=== PATIENT | male | born 1960 | race Caucasian/White ===

== ENCOUNTER → 2017-11-08 09:16 | Outpatient (CLI) | payer OTHER, SELFPAY ==
--- NOTE | 2017-11-08 | DI.RAD.S_ITS ---
PROCEDURE: XR SHOULDER LT MIN 2V INDICATIONS: 57 year-old male with bilateral shoulder pain. TECHNIQUE: 3 views of the shoulder were acquired. COMPARISON: None. FINDINGS: Bones: No fractures or dislocations. There is mild acromioclavicular joint degeneration. No suspicious bony lesions. Visualized ribs appear intact. Cervical spine anterior fixation hardware is incompletely visualized. Soft tissues: No suspicious soft tissue calcifications. IMPRESSION: Mild left acromioclavicular joint degeneration. Dictated by: Salvador Viera M.D. on 11/08/2017 at 10:23 Approved by: Salvador Viera M.D. on 11/08/2017 at 10:24
--- NOTE | 2017-11-08 | DI.RAD.S_ITS ---
PROCEDURE: XR SHOULDER RT MIN 2V INDICATIONS: 57 year-old male with right shoulder pain. TECHNIQUE: 3 views of the shoulder were acquired. COMPARISON: None. FINDINGS: Bones: No fractures or dislocations. There is mild acromioclavicular joint degeneration. No suspicious bony lesions. Visualized ribs appear intact. Soft tissues: Cervical spine anterior fixation hardware is incompletely visualized. No suspicious soft tissue calcifications. IMPRESSION: Mild right acromioclavicular joint degeneration. Dictated by: Salvador Viera M.D. on 11/08/2017 at 10:22 Approved by: Salvador Viera M.D. on 11/08/2017 at 10:22
--- NOTE | 2017-11-08 09:20 | DI.RAD.S_ITS ---
PROCEDURE: XR WRIST RT MIN 3V INDICATIONS: 57 year-old male with bilateral hand and wrist pain. TECHNIQUE: 4 views of the wrist were acquired. COMPARISON: None. FINDINGS: Bones: No fractures or dislocations. No joint degeneration or bony erosions. No suspicious bony lesions. Scaphoid view: Scaphoid appears intact. Soft tissues: No suspicious soft tissue calcifications. IMPRESSION: No radiographic explanation for right wrist pain. Dictated by: Salvador Viera M.D. on 11/08/2017 at 10:32 Approved by: Salvador Viera M.D. on 11/08/2017 at 10:33
--- NOTE | 2017-11-08 09:20 | DI.RAD.S_ITS ---
PROCEDURE: XR WRIST LT MIN 3V INDICATIONS: 57 year-old male with nontraumatic left hand and wrist pain. TECHNIQUE: 4 views of the wrist were acquired. COMPARISON: [facility], [facility], XR HAND LT MIN 3V, 11/08/2017, 9:28. FINDINGS: Bones: No fractures or dislocations. No joint degeneration or bony erosions. Fourth metacarpal shaft and neck enchondroma is again noted. Scaphoid view: Scaphoid appears intact. Soft tissues: No suspicious soft tissue calcifications. IMPRESSION: No radiographic explanation for nontraumatic left wrist pain. Dictated by: Salvador Viera M.D. on 11/08/2017 at 10:37 Approved by: Salvador Viera M.D. on 11/08/2017 at 10:37
--- NOTE | 2017-11-08 09:21 | DI.RAD.S_ITS ---
PROCEDURE: XR HAND LT MIN 3V INDICATIONS: 57-year-old male with nontraumatic hand and wrist pain. TECHNIQUE: 3 views of the hand(s) acquired. COMPARISON: [facility] , BONE SURVEY ADULT METS, 07/17/2015, 11:06. [facility] , HAND 3V LEFT, 05/08/2015, 16:16. FINDINGS: Bones: No fractures or dislocations. Carpal bones are normally aligned. 2.1 x 1.1 cm central intramedullary lucent lesion in the fourth metacarpal shaft and neck is unchanged in overall size, with internal cartilaginous matrix again noted. Soft tissues: No suspicious soft tissue calcifications. IMPRESSION: No significant interval change in size and appearance of lucent lesion involving the fourth metacarpal shaft and neck, with morphology and temporal stability consistent with benign enchondroma. Dictated by: Salvador Viera M.D. on 11/08/2017 at 10:33 Approved by: Salvador Viera M.D. on 11/08/2017 at 10:36
--- NOTE | 2017-11-08 09:21 | DI.RAD.S_ITS ---
PROCEDURE: XR HAND RT MIN 3V INDICATIONS: 57-year-old male with nontraumatic right hand and wrist pain. TECHNIQUE: 3 views of the hand(s) acquired. COMPARISON: None. FINDINGS: Bones: No fractures or dislocations. No joint degeneration. No bony erosions or joint narrowing. Carpal bones are normally aligned. No suspicious bony lesions. Soft tissues: No suspicious soft tissue calcifications. IMPRESSION: No radiographic explanation for right hand pain. Dictated by: Salvador Viera M.D. on 11/08/2017 at 10:24 Approved by: Salvador Viera M.D. on 11/08/2017 at 10:25
== END ==
PROVIDERS: Family Provider Internal Medicine; PCP Internal Medicine; Visit Provider Internal Medicine
DX: M35.3 Polymyalgia rheumatica (principal); M19.012 Primary osteoarthritis, left shoulder; M19.011 Primary osteoarthritis, right shoulder; M25.541 Pain in joints of right hand; M25.531 Pain in right wrist; D16.12 Benign neoplasm of short bones of left upper limb; M25.532 Pain in left wrist
CPT/HCPCS: 73030; 73110; 73130

== ENCOUNTER → 2017-11-22 11:04 | Outpatient (CLI) | payer OTHER, SELFPAY ==
--- NOTE | 2017-11-22 | DI.RAD.S_ITS ---
PROCEDURE: XR ELBOW LT MIN 3V INDICATIONS: pain in arm TECHNIQUE: 3 views of the elbow were acquired. COMPARISON: None. FINDINGS: Bones: Partially visualized orthopedic plate and fixation screws in the proximal radial shaft. No acute fractures or dislocations. There is appearance of a chronic avulsion over the lateral margin of the capitellum, underlying bony irregularity and sclerosis. Slight deformity of the radial head laterally. No suspicious bony lesions. Soft tissues: No elbow joint effusion. No suspicious soft tissue calcifications. IMPRESSION: 1. No joint effusion or acute bony abnormality. 2. Chronic fracture deformities and postoperative changes. Dictated by: Biju James M.D. on 11/22/2017 at 11:46 Approved by: Biju James M.D. on 11/22/2017 at 11:49
--- NOTE | 2017-11-22 | DI.RAD.S_ITS ---
PROCEDURE: XR ELBOW RT MIN 3V INDICATIONS: pain in arm TECHNIQUE: 3 views of the elbow were acquired. COMPARISON: None. FINDINGS: Bones: No fractures or dislocations. No suspicious bony lesions. Small subcortical cystic changes are present in the lateral margin of the capitellum Soft tissues: No elbow joint effusion. No suspicious soft tissue calcifications. IMPRESSION: 1. Mild subcortical cystic change is capitellum. Possible overlying bursitis. No joint effusion. Dictated by: Biju James M.D. on 11/22/2017 at 11:41 Approved by: Biju James M.D. on 11/22/2017 at 11:43
== END ==
PROVIDERS: Family Provider Internal Medicine; PCP Internal Medicine; Visit Provider Internal Medicine
DX: M25.522 Pain in left elbow (principal); M25.521 Pain in right elbow
CPT/HCPCS: 73080

== ENCOUNTER → 2017-12-24 09:54 | Outpatient (CLI) | payer OTHER, SELFPAY | PROVIDERS: Family Provider Internal Medicine; PCP Internal Medicine; Visit Provider Internal Medicine Rheumatology | DX: M81.0 Age-related osteoporosis without current pathological fracture (principal) | CPT/HCPCS: 77080 ==

== ENCOUNTER → 2018-01-12 12:20 | Outpatient (CLI) | payer OTHER, SELFPAY ==
[2018-01-12 14:34] LABS: Thyroid Stimulating Hormone 0.88 uIU/mL (0.47-4.68)
== END ==
PROVIDERS: Family Provider Internal Medicine; PCP Internal Medicine; Visit Provider Internal Medicine Rheumatology
DX: M85.80 Other specified disorders of bone density and structure, unspecified site (principal)
CPT/HCPCS: 36415; 84443

== ENCOUNTER → 2018-01-18 10:59 | Outpatient (CLI) | payer OTHER, SELFPAY ==
--- NOTE | 2018-01-18 | DI.NM.S_ITS ---
PROCEDURE: [place] BONE SCAN WHOLE BODY RADIOPHARMACEUTICAL: 20.1 mCi Tc-99m MDP IV. INDICATIONS: UNSPECIFIED OSTEOARTHRITIS BILATERAL SHOULDER PAIN TECHNIQUE: Delayed whole-body scintigrams were obtained approximately 3-4 hours after intravenous injection of radiotracer. Anterior and posterior views were acquired from vertex to feet. Additional left and right oblique views of the pelvis were obtained. COMPARISON: [facility], CT, ABDOMEN/PELVIS WITH CONTRAST, 07/17/2015, 12:10. [place], [place], BONE SCAN WHOLE BODY, 06/04/2015, 14:17. [facility], , BONE SURVEY ADULT METS, 07/17/2015, 11:06. FINDINGS: No abnormal uptake in the calvarium or facial bones. Fusion of the lower cervical spine shows no abnormal uptake. Uptake in the right sixth posterior rib secondary to fracture on prior exam has healed with no residual. Degenerative uptake in the shoulders and sternoclavicular joints, elbows and wrists appear unchanged. The forearms are not completely included in the imaging. The left forearm, probable radius, shows heterogeneous uptake in the proximal and mid shaft similar to that on prior exam. Focal uptake in the left fourth metacarpal is unchanged. No abnormal uptake is evident in the thoracic and lumbar spine. The pelvis again shows photopenia secondary to right hip prosthesis with mild postsurgical uptake surrounding the femoral shaft and acetabulum. There is also mild uptake in the subtrochanteric region of the proximal left femur, both medially and laterally. Previous CT imaging shows an irregular sclerotic lesion at the base of the greater trochanter laterally and a 5 mm sclerotic focus in the anterior upper shaft. The bony pelvis shows no additional abnormality. The lower extremities distally show marked uptake in the left ankle, lateral midfoot and first metatarsal phalangeal joint. Kidneys are both functional. There is mild caliectasis in the right upper and lower pole calyces, unchanged. IMPRESSION: 1. Abnormal tracer uptake consistent with degenerative joint disease is evident in the upper and lower extremities as described. Uptake in the left foot and ankle is significantly increased compared to prior study. 2. Apparent postoperative uptake is evident in the right hip post arthroplasty. 3. There are areas of uptake that are of concern for possible non-arthritic bone lesions, notably in the left forearm, left hand and left proximal femur. All of these however appear unchanged from the 2015 exam. Dictated by: Biju James M.D. on 01/18/2018 at 15:41 Approved by: Biju James M.D. on 01/18/2018 at 16:05
--- NOTE | 2018-01-18 11:03 | DI.MRI.S_ITS ---
PROCEDURE: MR SHOULDER LT WO CON INDICATIONS: UNSPECIFIED OSTEOARTHRITIS BILATERAL SHOULDER PAIN TECHNIQUE: Noncontrast oblique coronal T2 fast spin echo with fat saturation, oblique sagittal T1 spin echo and T2 fast spin echo with fat saturation, axial T1 spin echo and T2 fast spin echo with fat saturation through the shoulder. COMPARISON: [facility], CR, XR SHOULDER LT MIN 2V, 11/08/2017, 9:22. FINDINGS: Image quality: Excellent. Rotator cuff: There is a small moderate grade partial-thickness tear of the mid subscapularis tendon at the humeral insertion site. There is moderate T2 signal elevation throughout the supraspinatus and infraspinatus tendons at the humeral insertion site, indicating tendinopathy. Teres minor is intact. Sagittal images demonstrate no muscle atrophy. Bones and bursae: No bone marrow contusions or fractures. Mild acromioclavicular joint degeneration. The acromion demonstrates conventional anatomy, without an os acromiale. No pathologic subacromial-subdeltoid or subcoracoid bursal fluid is present. Capsule and soft tissues: In the absence of intra-articular contrast, the labrum and glenohumeral ligaments appear intact. The long head of the biceps tendon demonstrates normal location and mild T2 signal elevation. The rotator interval appears normal, without fibrosis. The coracohumeral ligament is normal in thickness. IMPRESSION: 1. Moderate grade pinhole tear of the subscapularis tendon. 2. Supraspinatus and infraspinatus tendinopathy without superimposed tear. 3. Mild acromioclavicular joint osteoarthritis. 4. Mild biceps tendinopathy. Dictated by: Yun Dupree M.D. on 01/18/2018 at 14:44 Approved by: Yun Dupree M.D. on 01/18/2018 at 15:05
--- NOTE | 2018-01-18 11:03 | DI.MRI.S_ITS ---
PROCEDURE: MR SHOULDER RT WO CON INDICATIONS: UNSPECIFIED OSTEOARTHRITIS BILATERAL SHOULDER PAIN TECHNIQUE: Noncontrast oblique coronal T2 fast spin echo with fat saturation, oblique sagittal T1 spin echo and T2 fast spin echo with fat saturation, axial T1 spin echo and T2 fast spin echo with fat saturation through the shoulder. COMPARISON: [facility], CR, XR SHOULDER RT MIN 2V, 11/08/2017, 9:22. FINDINGS: Image quality: Excellent. Rotator cuff: There is a 1 mm diameter linear region of fluid signal intensity traversing the mid subscapularis tendon at the humeral insertion site extending almost to the articular surface. Moderate T2 signal elevation within the supraspinatus and infraspinatus tendons diffusely at the humeral insertion site is present, extending to the muscular tendinous junction, indicating tendinopathy. A small region of fluid signal intensity within the mid/posterior infraspinatus at the muscle-tendon junction is present. Teres minor is intact. The supraspinatus, infraspinatus, and subscapularis tendons otherwise appear intact throughout. Sagittal images demonstrate no muscle atrophy. Bones and bursae: No bone marrow contusions or fractures. Moderate acromioclavicular joint degeneration. The acromion demonstrates conventional anatomy, without an os acromiale. No pathologic subacromial-subdeltoid or subcoracoid bursal fluid is present. Capsule and soft tissues: High T2 signal intensity within the anteroinferior glenoid labrum is present, with associated full-thickness articular cartilage loss overlying the anteroinferior glenoid labrum. The long head of the biceps tendon demonstrates normal location and moderate T2 signal elevation within its substance. The rotator interval appears normal, without fibrosis. The coracohumeral ligament is normal in thickness. IMPRESSION: 1. High-grade pinhole tear of the mid subscapularis tendon at the humeral insertion site. 2. Supraspinatus and infraspinatus tendinopathy with small superimposed intrasubstance tear of the infraspinatus. 3. Acromioclavicular joint osteoarthritis. 4. Anteroinferior glenoid labral articular cartilage defect. 5. Biceps tendinopathy. Dictated by: Yun Dupree M.D. on 01/18/2018 at 14:36 Approved by: Yun Dupree M.D. on 01/18/2018 at 14:41
== END ==
PROVIDERS: Family Provider Internal Medicine; PCP Internal Medicine; Visit Provider Internal Medicine Rheumatology
DX: S46.011A Strain of muscle(s) and tendon(s) of the rotator cuff of right shoulder, initial encounter (principal); M19.011 Primary osteoarthritis, right shoulder
CPT/HCPCS: 73221; 78306; A9503

== ENCOUNTER 2019-06-29 14:15 | Emergency (ER) | payer OTHER, SELFPAY ==
[2019-06-29 14:22] VITALS: BP 124/77; PULSE 72; RESP 16; TEMP 36.5; O2SAT 99; BMI 23.9
[2019-06-29 14:57] LABS: Bacteria Urine None Seen
[2019-06-29 15:06] LABS: Culture Indicated Urine Cult Not Indicated; RBC Urine 0-1/HPF (0-5/HPF); Squamous Epithelial Cell Urine 0-1 /HPF (0-5/HPF); WBC Urine 0-1/HPF (0-5/HPF)
--- NOTE | 2019-06-29 15:47 | DI.US.S_ITS ---
PROCEDURE: US RENAL COMPLETE INDICATIONS: KNOWN RT RENAL CALCULI, R/O HYDRONEPHROSIS TECHNIQUE: Real-time scanning was performed of the kidneys and bladder, with image documentation. COMPARISON: [facility], CT, ABDOMEN/PELVIS WITH CONTRAST, 07/17/2015, 12:10. [facility], [place], [place] BONE SCAN WHOLE BODY, 01/18/2018, 14:43. FINDINGS: Kidneys: Kidneys are normal in size. Right kidney measures 11.9 cm long; left kidney measures 11.9 cm long. Right renal cortical thickness is 1.2 cm; left renal cortical thickness is 1.2 cm. there is moderate right-sided hydronephrosis. Renal cortical echotexture is normal. No left-sided hydronephrosis or nephrolithiasis. Right-sided moderate hydronephrosis is identified. No suspicious solid mass lesions. Bladder: Pre-void bladder volume is 322 mL. Post-void residual is 6.0 mL. Pre-void images demonstrate no intraluminal masses or stones. On pre-void images, neither ureteral jets are noted with color Doppler interrogation. (Of note, ureteral jets may not be detectable in up to 25% of cases due to insufficient differences in specific gravity between ureteral and bladder urine). Miscellaneous: No free pelvic fluid. IMPRESSION: Moderate right-sided hydronephrosis, not previously present on CT scanning from July 2015. No urinary tract stone found, depending on the clinical status followup by CT KUB scanning may be warranted for accurate assessment of presence of a ureteral stone or other cause of a new finding of right-sided hydronephrosis.. Dictated by: Mark Feng M.D. on 06/29/2019 at 17:02 Approved by: Mark Feng M.D. on 06/29/2019 at 17:04
--- NOTE | 2019-06-29 15:49 | ED.MALEGU ---
HPI - Male Genitourinary <Brittany OdonnellNINA - Last Filed: 06/29/19 21:41> General Chief complaint: Urogenital-Male Stated complaint: thinks kidney stone, blood in urine Time Seen by Provider: 06/29/19 15:10 Source: patient Mode of arrival: Ambulatory History of Present Illness HPI Narrative: 59-year-old male with a history of previous renal calculi (last stone in 2017 after laminectomy), presents emergency department complaining of right flank pain for the past 2 days. He states this started as a dull ache in his lower groin and then radiated to his right flank area. The pain was worse yesterday and this morning with associated nausea and diaphoresis. He states this feels very similar to a kidney stone. He was seen in the clinic and blood was found in his urine. Patient reports the pain has progressively less than over the past few hours. He states the pain started as a 8/10 aching but now a 4/10. Patient denies any nausea at this time. He states he took an oxycodone in the morning but has not had any pain medication since. Patient states he ate previously had a cervical fusion completed last week. Patient denies any fevers, chills, nausea, vomiting at this time, abdominal pain, swollen testicles, difficulty urinating, or other concerns. Related Data Home Medications Medication Instructions Recorded Confirmed baclofen 10 mg PO TID 06/29/19 meloxicam 15 mg PO DAILY 06/29/19 06/29/19 oxycodone 5 - 10 mg PO Q4-6H PRN 06/29/19 pregabalin 75 mg PO TID 06/29/19 Previous Rx's Medication Instructions Recorded gabapentin 100 mg PO QDAY #90 cap 10/19/16 gabapentin [Neurontin] 400 mg PO TID #270 cap 11/06/16 clonazepam 1 mg PO BIDP PRN #60 tab 12/14/16 ondansetron HCl 4 mg PO Q6H #10 tab 06/29/19 oxycodone 5 mg PO BID PRN #10 tab 06/29/19 tamsulosin 0.4 mg PO DAILY #20 cap 06/29/19 Allergies Allergy/AdvReac Type Severity Reaction Status Date / Time mannitol [From Reclast] Allergy Verified 06/29/19 14:22 water for injection,sterile Allergy Verified 06/29/19 14:22 [From Reclast] zoledronic acid Allergy Verified 06/29/19 14:22 [From Reclast] Review of Systems <NINA Quintanilla - Last Filed: 06/29/19 21:41> Review of Systems Narrative: REVIEW OF SYSTEMS: GENERAL: Denies fever or chills. HENT: No head trauma, hearing loss or sore throat. EYES: No loss of vision, double vision, eye pain, or irritation. CARDIOVASCULAR: No chest pain or syncope. RESPIRATORY: No shortness of breath or cough. GASTROINTESTINAL: No nausea, vomiting, diarrhea, or constipation. GENITOURINARY: Complains of right-sided flank pain, see HPI. MUSCULOSKELETAL: No pain, weakness, or deformities. INTEGUMENTARY: No rash, lesions, or pruritus. NEURO: No numbness, tingling, memory loss, or confusion. PSYCH: No behavior or mood changes. Patient History <NINA Quintanilla - Last Filed: 06/29/19 21:41> Surgical History (Updated 10/05/17 @ 06:31 by Conversion Provider) History of carpal tunnel repair History of hip replacement History of spinal fusion Status post hernia repair Status post knee surgery Status post laminectomy Exam <NINA Quintanilla - Last Filed: 06/29/19 21:41> Initial Vital Signs Initial Vital Signs: Vital Signs Temperature 97.7 F 06/29/19 14:22 Pulse Rate 72 06/29/19 14:22 Respiratory Rate 16 06/29/19 14:22 Blood Pressure 124/77 06/29/19 14:22 Pulse Oximetry 99 06/29/19 14:22 PHYSICAL EXAMINATION: GENERAL: Well groomed, alert, and cooperative. Answers questions promptly and appropriately. Vital signs noted. HENT: Normocephalic, atraumatic. Hearing intact. Oral mucosa is pink and moist. EYES: Conjunctiva pink, sclera white, no periorbital swelling. CARDIOVASCULAR: S1 and S2 sounds normal. Regular rate and rhythm, no murmurs, clicks, or bruits. No pedal edema. RESPIRATORY: Normal respiratory rate, trachea midline, airway patent. No stridor, nasal flaring or accessory muscle use. Lungs are clear in all corral without wheeze, rhonchi, or crackles. GASTROINTESTINAL: Bowel sounds normoactive. Abdomen is soft and non-tender. No organomegaly, no palpable masses. GENITALURINARY: Right flank tenderness with palpation. MUSCULOSKELETAL: Normal gait and coordination. Equal tone and mass bilaterally. EXTREMITIES: CMS intact, no pedal edema. SKIN: Warm, dry, soft, appropriate color for ethnicity. No lesions, rashes, or wounds to visualized areas. NEURO: Alert and Oriented X 3. Good coordination. No ataxia, or sensory deficits, or cognitive issues. PSYCH: Appropriate affect and mood. <Vernell Arguello MD - Last Filed: 06/30/19 04:58> Initial Vital Signs Initial Vital Signs: Vital Signs Temperature 97.7 F 06/29/19 14:22 Pulse Rate 72 06/29/19 14:22 Respiratory Rate 16 06/29/19 14:22 Blood Pressure 124/77 06/29/19 14:22 Pulse Oximetry 99 06/29/19 14:22 Course <NINA Quintanilla - Last Filed: 06/29/19 21:41> Course Course Narrative: Discussed with patient and the benefits and risks of an additional CT scan. [place] for hydronephrosis. Explained this is less likely and he possibly may have passed a kidney stone due to lack of blood in his urine and decreasing pain. Ultrasound was ordered which showed hydronephrosis, CT was ordered that showed 5 mm obstructing stone. Patient reported improved symptoms after administration of fluid and Toradol. Orders Ordered: Discontinued Medications Ketorolac Tromethamine (Toradol) 30 mg IV NOW ONE Stop: 06/29/19 15:48 Last Admin: 06/29/19 16:09 Dose: 30 mg Documented by: ANJU Consultations Consultation #1: Patient staffed with Dr. Arguello. Vital Signs Vital signs: Vital Signs - 8 hr 06/29/19 14:22 06/29/19 17:47 Temperature 97.7 F Pulse Rate 72 77 Respiratory Rate 16 Blood Pressure 124/77 Blood Pressure [Right Arm] 124/90 Pulse Oximetry 99 97 <Vernell Arguello MD - Last Filed: 06/30/19 04:58> Orders Ordered: Discontinued Medications Ketorolac Tromethamine (Toradol) 30 mg IV NOW ONE Stop: 06/29/19 15:48 Last Admin: 06/29/19 16:09 Dose: 30 mg Documented by: ANJU Vital Signs Vital signs: Vital Signs - 8 hr 06/29/19 14:22 06/29/19 17:47 Temperature 97.7 F Pulse Rate 72 77 Respiratory Rate 16 Blood Pressure 124/77 Blood Pressure [Right Arm] 124/90 Pulse Oximetry 99 97 MDM - Male Genitourinary <Brittany OdonnellNINA - Last Filed: 06/29/19 21:41> Medical Records Attestation: I reviewed the patient's medical records. Lab Data Attestation: I reviewed the patient's lab results. Result diagrams: 06/29/19 15:57 06/29/19 15:57 Labs: Lab Results 06/29/19 06/29/19 06/29/19 Range/Units 14:30 15:57 15:57 WBC 6.2 (4.5-11.0) X10^3/uL RBC 4.68 (4.5-5.9) X10^6/uL Hgb 14.2 (13.5-17.5) g/dL Hct 40.3 L (41-53) % MCV 86.2 (80-100) fL MCH 30.3 (26-34) PG MCHC 35.1 (30-36) % RDW 13.2 (11.6-14.8) % Plt Count 199 (150-400) X10^3/uL Neut % (Auto) 61.9 (50-75) % Lymph % (Auto) 22.1 L (25-40) % [place] % (Auto) 11.1 (3-14) % Eos % (Auto) 4.2 H (2-4) % Baso % (Auto) 0.7 (0-2) % Neut # (Auto) 3800 (4069-9001) /uL Lymph # (Auto) 1400 (3057-2115) /uL [place] # (Auto) 700 (0-900) /uL Eos # (Auto) 300 (0-450) /uL Baso # (Auto) 0 (0-100) /uL Sodium 138 (137-145) mmol/L Potassium 3.9 (3.4-5.1) mmol/L Chloride 102 (98-107) mmol/L Carbon Dioxide 27 (22-32) mmol/L BUN 15 (9-20) mg/dL Creatinine 0.70 (0.66-1.25) mg/dL Estimated GFR > 60.0 (>60) mL/min BUN/Creatinine Ratio 21.4 (6-22) Glucose 89 (80-110) mg/dL Calcium 9.6 (8.4-10.2) mg/dL Total Bilirubin 0.8 (0.2-1.3) mg/dL AST 24 (17-59) IU/L ALT 19 (<50) IU/L Alkaline Phosphatase 54 (38-126) U/L Total Protein 7.1 (6.3-8.2) g/dL Albumin 4.3 (3.5-5.0) g/dL Globulin 2.8 (1.7-4.1) g/dL Albumin/Globulin Ratio 1.5 (1.0-2.8) Urine RBC 0-1/hpf (0-5/HPF) Urine WBC 0-1/hpf (0-5/HPF) Ur Squamous Epith Cells 0-1 /hpf (0-5/HPF) Urine Bacteria None seen (None) Ur Culture Indicated? Cult not indicated Urine Dip Bedside Urine Glucose Negative Bedside Urine Bilirubin - Negative Bedside Urine Ketone - Negative Urine Specific [place] 1.010 Bedside Urine Occult Blood ++ Bedside Urine pH 6.0 Bedside Urine Protein - Negative Bedside Urine Urobilinogen - Negative Bedside Urine Nitrite - Negative Bedside Urine Leukocytes - Negative Esterase Imaging Data KUB CT: Radiologist's Impression: [address] [address] [address] Scan Report Signed Patient: Kristian Dickerson LMR#: [id number] : 8Acct:[id number] Age/Sex: 59 / MDate of Service: 06/29/19 Loc: ED Accession Number: [id number] Procedure: CT kidney ureter bladder (KUB) Ordering Provider: Brittany Odonnell PROCEDURE: CT KIDNEY URETER BLADDER (KUB) INDICATIONS: Right hydronephrosis, scan for obstructing renal calculi TECHNIQUE: Noncontrast 5 mm thick sections acquired from the diaphragms to the symphysis. 5 mm thick coronal and sagittal reformats were then performed. For radiation dose reduction, the following was used: automated exposure control, adjustment of mA and/or kV according to patient size. COMPARISON: None. FINDINGS: Image quality: Excellent. Lung bases: Lung bases are clear. Heart size is normal. Urinary system: No left-sided urolithiasis. No right renal calculi are seen however there is 5 mm calculus in the proximal right ureter on image 48/2. There is associated moderate right-sided hydronephrosis and perinephric stranding. No bladder calculi seen. Bladder is partially collapsed. Other solid organs: Liver is normal in size. Gallbladder negative. Pancreas is normal in contours. Spleen is normal in size. No adrenal nodules. Peritoneum and bowel: Scattered colonic diverticula. Normal appendix. No free fluid or air. Nodes and vessels: No retroperitoneal or mesenteric adenopathy by size criteria. Aorta and inferior vena cava are normal in caliber. Abdominal wall: No ventral hernias. Pelvis: No free pelvic fluid. Small bilateral inguinal hernias. No adenopathy. Bones: No suspicious bony lesions. No vertebral body compression fractures. Diffuse osteopenia. Interbody fusion of L5-S1 with anterior retaining plate and screws. IMPRESSION: Moderately obstructive proximal right renal calculus as above Dictated by: Cirilo Lopez M.D. on 06/29/2019 at 17:50 Approved by: Cirilo Lopez M.D. on 06/29/2019 at 17:56 Renal ultrasound: Radiologist's Impression: [place] [address] Ultrasound Report Signed Patient: Kristian Dickerson LMR#: [id number] : 8Acct:[id number] Age/Sex: 59 / MDate of Service: 06/29/19 Loc: ED Accession Number: [id number] Procedure: US renal complete Ordering Provider: Brittany Odonnell PROCEDURE: US RENAL COMPLETE INDICATIONS: KNOWN RT RENAL CALCULI, R/O HYDRONEPHROSIS TECHNIQUE: Real-time scanning was performed of the kidneys and bladder, with image documentation. COMPARISON: [facility], CT, ABDOMEN/PELVIS WITH CONTRAST, 07/17/2015, 12:10. [facility], [place], [place] BONE SCAN WHOLE BODY, 01/18/2018, 14:43. FINDINGS: Kidneys: Kidneys are normal in size. Right kidney measures 11.9 cm long; left kidney measures 11.9 cm long. Right renal cortical thickness is 1.2 cm; left renal cortical thickness is 1.2 cm. there is moderate right-sided hydronephrosis. Renal cortical echotexture is normal. No left-sided hydronephrosis or nephrolithiasis. Right-sided moderate hydronephrosis is identified. No suspicious solid mass lesions. Bladder: Pre-void bladder volume is 322 mL. Post-void residual is 6.0 mL. Pre-void images demonstrate no intraluminal masses or stones. On pre-void images, neither ureteral jets are noted with color Doppler interrogation. (Of note, ureteral jets may not be detectable in up to 25% of cases due to insufficient differences in specific gravity between ureteral and bladder urine). Miscellaneous: No free pelvic fluid. IMPRESSION: Moderate right-sided hydronephrosis, not previously present on CT scanning from July 2015. No urinary tract stone found, depending on the clinical status followup by CT KUB scanning may be warranted for accurate assessment of presence of a ureteral stone or other cause of a new finding of right-sided hydronephrosis.. Dictated by: Mark Feng M.D. on 06/29/2019 at 17:02 Approved by: Mark Feng M.D. on 06/29/2019 at 17:04 [facility] Narrative Medical decision making narrative: 59-year-old male presenting to the emergency department for concerns of a kidney stone, he reports right flank pain for the past 2 days and history of kidney stones. Ultrasound showed hydronephrosis so CT KUB was ordered which revealed a 5 mm obstructing renal stone. Renal function is within normal limits as confirmed by laboratory work. Patient was counseled that it is most likely that he will be able to pass this renal calculi. Less concern for pyelonephritis due to lack of bacteria in urine and resolving pain. Patient was discharged with tamsulosin, pain medication, and nausea medication. He was encouraged to follow up with the referred urologist. Patient was given strict ED return precautions for new or worsening symptoms such as fevers. Patient agreed with plan of care verbalized understanding. <Vernell Arguello MD - Last Filed: 06/30/19 04:58> Lab Data Labs: Lab Results 06/29/19 06/29/19 06/29/19 Range/Units 14:30 15:57 15:57 WBC 6.2 (4.5-11.0) X10^3/uL RBC 4.68 (4.5-5.9) X10^6/uL Hgb 14.2 (13.5-17.5) g/dL Hct 40.3 L (41-53) % MCV 86.2 (80-100) fL MCH 30.3 (26-34) PG MCHC 35.1 (30-36) % RDW 13.2 (11.6-14.8) % Plt Count 199 (150-400) X10^3/uL Neut % (Auto) 61.9 (50-75) % Lymph % (Auto) 22.1 L (25-40) % [place] % (Auto) 11.1 (3-14) % Eos % (Auto) 4.2 H (2-4) % Baso % (Auto) 0.7 (0-2) % Neut # (Auto) 3800 (3444-9265) /uL Lymph # (Auto) 1400 (9288-5093) /uL [place] # (Auto) 700 (0-900) /uL Eos # (Auto) 300 (0-450) /uL Baso # (Auto) 0 (0-100) /uL Sodium 138 (137-145) mmol/L Potassium 3.9 (3.4-5.1) mmol/L Chloride 102 (98-107) mmol/L Carbon Dioxide 27 (22-32) mmol/L BUN 15 (9-20) mg/dL Creatinine 0.70 (0.66-1.25) mg/dL Estimated GFR > 60.0 (>60) mL/min BUN/Creatinine Ratio 21.4 (6-22) Glucose 89 (80-110) mg/dL Calcium 9.6 (8.4-10.2) mg/dL Total Bilirubin 0.8 (0.2-1.3) mg/dL AST 24 (17-59) IU/L ALT 19 (<50) IU/L Alkaline Phosphatase 54 (38-126) U/L Total Protein 7.1 (6.3-8.2) g/dL Albumin 4.3 (3.5-5.0) g/dL Globulin 2.8 (1.7-4.1) g/dL Albumin/Globulin Ratio 1.5 (1.0-2.8) Urine RBC 0-1/hpf (0-5/HPF) Urine WBC 0-1/hpf (0-5/HPF) Ur Squamous Epith Cells 0-1 /hpf (0-5/HPF) Urine Bacteria None seen (None) Ur Culture Indicated? Cult not indicated Urine Dip Bedside Urine Glucose Negative Bedside Urine Bilirubin - Negative Bedside Urine Ketone - Negative Urine Specific [place] 1.010 Bedside Urine Occult Blood ++ Bedside Urine pH 6.0 Bedside Urine Protein - Negative Bedside Urine Urobilinogen - Negative Bedside Urine Nitrite - Negative Bedside Urine Leukocytes - Negative Esterase Discharge Plan Departure Patient Disposition: Home Clinical Impression: Hydronephrosis with renal and ureteral calculous obstruction Discharge Date/Time: 06/29/19 18:49 Instructions: DI for Kidney Stones Activity Restrictions/Additional Instructions: Thank you for entrusting me with your care today. As discussed, you have a 5 mm obstructing kidney stone. I prescribed you oxycodone, ondansetron, and tamsulosin. You have been prescribed a narcotic medication, this medication can make you drowsy. Do not drive while using this medication or perform activities that require mental alertness. These medications can also make you constipated, please use [id number] docusate sodium as needed for constipation. Follow-up with a urologist listed below, call them tomorrow to schedule an appointment. Return emergency department for new or worsening symptoms such as severe pain, uncontrollable vomiting, abdominal pain, high fevers, or other concerns. Prescriptions: New ondansetron HCl 4 mg tablet 4 mg PO Q6H Qty: 10 RF: 0 oxycodone 5 mg tablet 5 mg PO BID PRN (Reason: pain) Qty: 10 RF: 0 tamsulosin 0.4 mg capsule 0.4 mg PO DAILY Qty: 20 RF: 0 No Action gabapentin 100 MG capsule 100 mg PO QDAY Qty: 90 RF: 3 gabapentin [Neurontin] 400 MG capsule 400 mg PO TID Qty: 270 RF: 1 clonazepam 1 MG tablet 1 mg PO BIDP PRNQty: 60 RF: 5 baclofen 10 mg tablet 10 mg PO TID RF: 0 pregabalin 75 mg Capsule 75 mg PO TID RF: 0 oxycodone 10 mg tablet 5 - 10 mg PO Q4-6H PRN (Reason: pain) RF: 0 meloxicam 15 MG tablet 15 mg PO DAILY RF: 0 Referrals: Silvana Rodrigues MD [Primary Care Provider] - Kim Amin MD [Physician] - (5 mm obstructing renal calculi)
[2019-06-29 16:05] LABS: Add Manual Diff / Slide Review NO; Basophils Absolute Auto 0 /uL (0-100); Basophils Percent Auto 0.7 % (0-2); Eosinophils Absolute Auto 300 /uL (0-450); Eosinophils Percent Auto 4.2 % (2-4); Hematocrit 40.3 % (41-53); Hemoglobin 14.2 g/dL (13.5-17.5); Lymphocytes Absolute Auto 1400 /uL (1100-4500); Lymphocytes Percent Auto 22.1 % (25-40); Mean Corpuscular HGB Conc 35.1 % (30-36); Mean Corpuscular Hemoglobin 30.3 PG (26-34); Mean Corpuscular Volume 86.2 fL (80-100); Monocytes Absolute Auto 700 /uL (0-900); Monocytes Percent Auto 11.1 % (3-14); Neutrophils Absolute Auto 3800 /uL (1500-7000); Neutrophils Percent Auto 61.9 % (50-75); Platelet Count 199 X10^3/uL (150-400); Red Blood Cell Count 4.68 X10^6/uL (4.5-5.9); Red Cell Distribution Width 13.2 % (11.6-14.8); White Blood Cell Count 6.2 X10^3/uL (4.5-11.0)
[2019-06-29] MEDS: KETOROLAC 60 MG/2 ML VIAL 30 MG IV (16:09)
[2019-06-29 16:19] LABS: Alanine Aminotransferase 19 IU/L (<50); Albumin 4.3 g/dL (3.5-5.0); Albumin Globulin Ratio 1.5 (1.0-2.8); Alkaline Phosphatase 54 U/L (38-126); Aspartate Aminotransferase 24 IU/L (17-59); BUN Creatinine Ratio 21.4 (6-22); Bilirubin Total 0.8 mg/dL (0.2-1.3); Blood Urea Nitrogen 15 mg/dL (9-20); Calcium 9.6 mg/dL (8.4-10.2); Carbon Dioxide 27 mmol/L (22-32); Chloride 102 mmol/L (98-107); Estimated Glomerular Filt Rate > 60.0 mL/min (>60); Globulin 2.8 g/dL (1.7-4.1); Glucose 89 mg/dL (80-110); HEMOLYSIS < 15 (0-50); Potassium 3.9 mmol/L (3.4-5.1); Sodium 138 mmol/L (137-145); Total Protein 7.1 g/dL (6.3-8.2)
--- NOTE | 2019-06-29 17:16 | DI.CT.S_ITS ---
PROCEDURE: CT KIDNEY URETER BLADDER (KUB) INDICATIONS: Right hydronephrosis, scan for obstructing renal calculi TECHNIQUE: Noncontrast 5 mm thick sections acquired from the diaphragms to the symphysis. 5 mm thick coronal and sagittal reformats were then performed. For radiation dose reduction, the following was used: automated exposure control, adjustment of mA and/or kV according to patient size. COMPARISON: None. FINDINGS: Image quality: Excellent. Lung bases: Lung bases are clear. Heart size is normal. Urinary system: No left-sided urolithiasis. No right renal calculi are seen however there is 5 mm calculus in the proximal right ureter on image 48/2. There is associated moderate right-sided hydronephrosis and perinephric stranding. No bladder calculi seen. Bladder is partially collapsed. Other solid organs: Liver is normal in size. Gallbladder negative. Pancreas is normal in contours. Spleen is normal in size. No adrenal nodules. Peritoneum and bowel: Scattered colonic diverticula. Normal appendix. No free fluid or air. Nodes and vessels: No retroperitoneal or mesenteric adenopathy by size criteria. Aorta and inferior vena cava are normal in caliber. Abdominal wall: No ventral hernias. Pelvis: No free pelvic fluid. Small bilateral inguinal hernias. No adenopathy. Bones: No suspicious bony lesions. No vertebral body compression fractures. Diffuse osteopenia. Interbody fusion of L5-S1 with anterior retaining plate and screws. IMPRESSION: Moderately obstructive proximal right renal calculus as above Dictated by: Cirilo Lopez M.D. on 06/29/2019 at 17:50 Approved by: Cirilo Lopez M.D. on 06/29/2019 at 17:56
[2019-06-29 17:47] VITALS: BP 124/90; PULSE 77; O2SAT 97
== END 2019-06-29 18:49 | disposition home or self-care (01) ==
PROVIDERS: Emergency Medicine; Emergency Provider Nurse Practitioner; Family Provider Family Medicine; PCP Family Medicine
DX: N13.2 Hydronephrosis with renal and ureteral calculous obstruction (principal)
CPT/HCPCS: 36415; 74176; 76770; 80053; 81003; 81015; 85025; 96374; 99284; J1885

== ENCOUNTER → 2019-07-26 14:56 | Outpatient (CLI) | payer OTHER, SELFPAY ==
--- NOTE | 2019-07-26 | DI.RAD.S_ITS ---
PROCEDURE: XR KUB INDICATIONS: Kidney stones TECHNIQUE: One view of the abdomen acquired. COMPARISON: [facility], CT, CT KIDNEY URETER BLADDER (KUB), 06/29/2019, 17:24. FINDINGS: Surgical changes and devices: None. Bowel: Bowel gas pattern is normal. Soft tissues: No suspicious abdominal calcifications on the left. There is a small calcification measuring approximately 4 mm in maximal dimension medial to the right acetabulum in an area previously free of calcification on CT scanning 06/29/19. This may represent a manifestation of distal migration of a ureteral stone identified at that time. Visualized solid organ contours appear normal in size. Bones: No suspicious bony lesions. IMPRESSION: An angular 4 mm calcification resides medial to the right acetabulum, and may represent distal migration of a previously identified distal right ureteral stone. This would imply the stone remains within the distal right ureter and further assessment by repeat CT KUB, versus ultrasound, should be considered. Urology intervention may be warranted assuming that this in fact does represent a persistent distal right ureteral stone. Dictated by: Mark Feng M.D. on 07/26/2019 at 15:48 Approved by: Mark Feng M.D. on 07/26/2019 at 15:51
== END ==
PROVIDERS: Family Provider Family Medicine; PCP Family Medicine; Referring Provider Specialist; Visit Provider Specialist
DX: N20.0 Calculus of kidney (principal)
CPT/HCPCS: 74018

== ENCOUNTER → 2019-08-01 08:58 | Outpatient (CLI) | payer OTHER, SELFPAY ==
[2019-08-01 10:23] LABS: Prostate Specific Antigen 1.57 ng/mL (0.10-4.00)
== END ==
PROVIDERS: Family Provider Family Medicine; PCP Family Medicine; Referring Provider Specialist; Visit Provider Specialist
DX: N40.1 Benign prostatic hyperplasia with lower urinary tract symptoms (principal)
CPT/HCPCS: 36415; 84153

== ENCOUNTER → 2019-08-17 08:55 | Outpatient (CLI) | payer OTHER, SELFPAY ==
--- NOTE | 2019-08-17 | DI.RAD.S_ITS ---
PROCEDURE: XR ABDOMEN 1V INDICATIONS: KIDNEY STONES TECHNIQUE: One view of the abdomen acquired. COMPARISON: [facility], CT, CT KIDNEY URETER BLADDER (KUB), 06/29/2019, 17:24. FINDINGS: Surgical changes and devices: There is lumbar spine fusion at L5-S1. Right hip arthroplasty. Bowel: Bowel gas pattern is normal. Soft tissues: The right proximal ureteral stone seen on the CT dated 06/29/2019 is not visualized on the current examination. Visualized solid organ contours appear normal in size. Moderate amount of stool in colon. Bones: No suspicious bony lesions. IMPRESSION: The right proximal ureteral stone seen on CT is not visualized on the current exam. The stone couldn't be passed although significant amount of stool in the vicinity could obscure a small stone. Dictated by: Mason Vann M.D. on 08/17/2019 at 14:00 Approved by: Mason Vann M.D. on 08/17/2019 at 14:03
== END ==
PROVIDERS: Family Provider Family Medicine; PCP Family Medicine; Referring Provider Family Medicine; Visit Provider Specialist
DX: N20.0 Calculus of kidney (principal)
CPT/HCPCS: 74018

== ENCOUNTER 2019-08-21 08:59 | Emergency (ER) | payer OTHER, SELFPAY ==
[2019-08-21 09:00] VITALS: BP 128/70; PULSE 72; RESP 16; TEMP 36.5; O2SAT 100
--- NOTE | 2019-08-21 09:18 | ED.MALEGU ---
HPI - Male Genitourinary General Chief complaint: Urogenital-Male Stated complaint: passing kidney stone,difficulty peeing Time Seen by Provider: 08/21/19 09:18 Source: patient Mode of arrival: Ambulatory History of Present Illness HPI Narrative: 59-year-old man with a history of renal stones followed by Dr. Figueredo, recent cervical fusion and a torn left rotator cuff presents with urinary hesitancy and irritation since 2:00 a.m. this morning. No fevers or chills. He notes he is still voiding on and that isn't particularly painful. He had a x-ray done on August 16 to see if the right renal stone was still present. It was not seen on that film. Related Data Home Medications Medication Instructions Recorded Confirmed baclofen 10 mg PO TID 06/29/19 meloxicam 15 mg PO DAILY 06/29/19 06/29/19 oxycodone 5 - 10 mg PO Q4-6H PRN 06/29/19 pregabalin 75 mg PO TID 06/29/19 Previous Rx's Medication Instructions Recorded gabapentin 100 mg PO QDAY #90 cap 10/19/16 gabapentin [Neurontin] 400 mg PO TID #270 cap 11/06/16 clonazepam 1 mg PO BIDP PRN #60 tab 12/14/16 ondansetron HCl 4 mg PO Q6H #10 tab 06/29/19 oxycodone 5 mg PO BID PRN #10 tab 06/29/19 tamsulosin 0.4 mg PO DAILY #20 cap 06/29/19 Allergies Allergy/AdvReac Type Severity Reaction Status Date / Time zoledronic acid Allergy Severe Anaphylaxis Verified 08/21/19 09:11 [From Reclast] Review of Systems Review of Systems Narrative: Healing postoperative symptoms after recent cervical fusion, pain in the left shoulder from rotator cuff tear Denies ? fever ? cough ? cold ? chills ? chest pain ? dyspnea ? orthopnea ? wheezing ? abdominal pain ? change to bowel habits ? nausea vomiting ? skin changes ? rashes Patient History Medical History (Updated 08/21/19 @ 10:44 by Vernell Arguello MD) Nephrolithiasis (Acute) Surgical History (Updated 10/05/17 @ 06:31 by Conversion Provider) History of carpal tunnel repair History of hip replacement History of spinal fusion Status post hernia repair Status post knee surgery Status post laminectomy Social History Smoking Status: Former smoker Smoking Status: Former smoker alcohol intake frequency: 0-2 drinks per day Substance Use Type: does not use Exam Narrative Exam Narrative: General: Healthy appearing, in no acute distress. Able to give a complete and coherent history. Well-nourished well-developed HEENT: Moist mucous membranes, normal sclera with reactive pupils, Neck: No JVD, supple Respiratory: Lungs are clear to auscultation, no wheezing no rales no rhonchi. Full and symmetrical air movement Cardiac: Regular rate and rhythm no murmurs no bruits Abdomen: Soft, nontender good bowel tones, no flank pain, no significant suprapubic tenderness Skin: Warm and dry, no rashes Neurologic: Grossly neurologically intact with no obvious asymmetries or abnormalities Extremities: No trauma, well perfused Psych: Cooperative, appropriate insight and affect Initial Vital Signs Initial Vital Signs: Vital Signs Temperature 97.7 F 08/21/19 09:00 Pulse Rate 72 08/21/19 09:00 Respiratory Rate 16 08/21/19 09:00 Blood Pressure 128/70 08/21/19 09:00 Pulse Oximetry 100 08/21/19 09:00 Course Orders Ordered: Discontinued Medications Phenazopyridine HCl (Pyridium) 100 mg PO NOW ONE Stop: 08/21/19 09:37 Last Admin: 08/21/19 10:02 Dose: 100 mg Documented by: REHAN Vital Signs Vital signs: Vital Signs - 8 hr 08/21/19 09:00 Temperature 97.7 F Pulse Rate 72 Respiratory Rate 16 Blood Pressure 128/70 Pulse Oximetry 100 [facility] - Male Genitourinary Medical Records Attestation: I reviewed the patient's medical records. Lab Data Attestation: I reviewed the patient's lab results. Lab results narrative: No blood no signs of infection Labs: Urine Dip Bedside Urine Glucose Negative Bedside Urine Bilirubin - Negative Bedside Urine Ketone - Negative Urine Specific [place] 1.015 Bedside Urine Occult Blood - Negative Bedside Urine pH 7.0 Bedside Urine Protein - Negative Bedside Urine Urobilinogen - Negative Bedside Urine Nitrite - Negative Bedside Urine Leukocytes - Negative Esterase Imaging Data KUB x-ray: Radiologist's Impression: IMPRESSION: The right proximal ureteral stone seen on CT is not visualized on the current exam. The stone couldn't be passed although significant amount of stool in the vicinity could obscure a small stone. Dictated by: Mason Vann M.D. on 08/17/2019 at 14:00 [facility] Narrative Medical decision making narrative: Patient is feeling better after hydrating and peridium. Urine is unremarkable. He does note that he went for a long hike yesterday and may not of hydrated as well as he should have. He is reassured. Follow-up is already scheduled with his urologist on . He is safe for home discharge Discharge Plan Departure Patient Disposition: Home Clinical Impression: Bladder irritability Instructions: DI for Kidney Stones Activity Restrictions/Additional Instructions: Thank you for coming in today Your urine today showed no blood and no white blood cells or signs of infection. I suspect that your symptoms are from mild dehydration and a little bit of irritability after you past your kidney stone. Your x-ray from August 16 suggests that the stone is no longer present. Make sure drinking plenty of fluids and if it does seem like her bladder is continuing to be irritable, ibuprofen is safe. Please keep your follow-up appointment with your urologist. I wish you the best Prescriptions: No Action gabapentin 100 MG capsule 100 mg PO QDAY Qty: 90 RF: 3 gabapentin [Neurontin] 400 MG capsule 400 mg PO TID Qty: 270 RF: 1 clonazepam 1 MG tablet 1 mg PO BIDP PRNQty: 60 RF: 5 baclofen 10 mg tablet 10 mg PO TID RF: 0 pregabalin 75 mg Capsule 75 mg PO TID RF: 0 oxycodone 10 mg tablet 5 - 10 mg PO Q4-6H PRN (Reason: pain) RF: 0 meloxicam 15 MG tablet 15 mg PO DAILY RF: 0 ondansetron HCl 4 mg tablet 4 mg PO Q6H Qty: 10 RF: 0 oxycodone 5 mg tablet 5 mg PO BID PRN (Reason: pain) Qty: 10 RF: 0 tamsulosin 0.4 mg capsule 0.4 mg PO DAILY Qty: 20 RF: 0 Referrals: Silvana Rodrigues MD [Primary Care Provider] -
[2019-08-21] MEDS: PHENAZOPYRIDINE 100 MG TABLET PO (10:02)
[2019-08-21 10:46] VITALS: BP 125/74; PULSE 60; RESP 17; O2SAT 98
== END 2019-08-21 10:50 | disposition home or self-care (01) ==
PROVIDERS: Emergency Provider Emergency Medicine; Family Provider Family Medicine; PCP Family Medicine
DX: N32.89 Other specified disorders of bladder (principal); N20.0 Calculus of kidney
CPT/HCPCS: 81003; 99283

== ENCOUNTER → 2019-10-04 11:40 | Outpatient (CLI) | payer OTHER, SELFPAY ==
--- NOTE | 2019-10-04 | DI.RAD.S_ITS ---
PROCEDURE: XR WRIST RT MIN 3V INDICATIONS: PAIN OF BILATERAL SHOULDER/RIGH HAND PAIN TECHNIQUE: 4 views of the wrist were acquired. COMPARISON: [facility], [facility], XR WRIST LT MIN 3V, 11/08/2017, 9:30. [facility], [facility], XR WRIST RT MIN 3V, 11/08/2017, 9:26. FINDINGS: Bones: No fractures or dislocations. No suspicious bony lesions. Scaphoid view: No trauma found. Soft tissues: No suspicious soft tissue calcifications. IMPRESSION: No trauma found. Dictated by: Mark Feng M.D. on 10/04/2019 at 14:36 Approved by: Mark Feng M.D. on 10/04/2019 at 14:37
--- NOTE | 2019-10-04 | DI.RAD.S_ITS ---
PROCEDURE: XR HAND RT MIN 3V INDICATIONS: PAIN OF BILATERAL SHOULDER/RIGH HAND PAIN TECHNIQUE: 3 views of the hand(s) acquired. COMPARISON: [facility], CR, XR HAND LT MIN 3V, 11/08/2017, 9:28. [facility], CR, XR HAND RT MIN 3V, 11/08/2017, 9:25. FINDINGS: Bones: No fractures or dislocations. Carpal bones are normally aligned. No suspicious bony lesions. Soft tissues: No suspicious soft tissue calcifications. 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 Dictated by: Mark Feng M.D. on 10/04/2019 at 14:37 Approved by: Mark Feng M.D. on 10/04/2019 at 14:38
--- NOTE | 2019-10-04 | DI.MRI.S_ITS ---
PROCEDURE: MR SHOULDER LT WO CON INDICATIONS: PAIN OF BILATERAL SHOULDER TECHNIQUE: Noncontrast oblique coronal T2 fast spin echo with fat saturation, oblique sagittal T1 spin echo and T2 fast spin echo with fat saturation, axial T1 spin echo and T2 fast spin echo with fat saturation through the shoulder. COMPARISON: [facility], MR, MR SHOULDER LT WO CON, 01/18/2018, 13:26. FINDINGS: Image quality: Diagnostic. Rotator cuff: There is thickening and increased signal identified involving the distal aspect of the supraspinatus tendon, which is similar to the previous exam with areas of low to moderate grade partial-thickness tearing that appear to extend along the myotendinous junction along anterior distal supraspinatus tendon. Mild thickening and increased signal is also evident involving the subscapularis and infraspinatus tendons without significant partial-thickness tearing appreciated. The teres minor tendon is intact. There is no significant atrophy of the rotator cuff muscles. Bones and bursae: No acute fracture, dislocation, or suspicious osseous lesion is identified involving the osseous structures of the left shoulder. There is a small glenohumeral joint effusion. Mild degenerative changes of the glenohumeral joint are present. There are moderate degenerative changes of the acromioclavicular joint. A small amount of fluid is contained within the subacromial subdeltoid bursa. Capsule and soft tissues: Evaluation of the rotator cuff and the glenohumeral ligaments is suboptimal without intra-articular contrast. However, no displaced labral tears are appreciated. There is heterogeneity along the superior aspect of the labrum, which may represent mild chronic labral degeneration. No para labral cysts are evident. Moderate thickening and increased signal involving the intra-articular portion of the biceps tendon is identified, which is similar to the previous exam. This tendon is normally positioned within the bicipital groove. No acute injuries are suspected involving the glenohumeral ligaments. IMPRESSION: 1. Low to moderate grade intrasubstance partial thickness tearing and prominent tendinopathy of the distal supraspinatus tendon a similar to the prior study. 2. [id number] subscapularis and infraspinatus tendinopathy is similar to the prior exam. 3. Prominent tendinopathy involving the intra-articular portion of the biceps tendon with possible intrasubstance partial thickness tearing is similar to prior exam. 4. [id number] degenerative changes of the right shoulder joints has not significantly progressed. 5. Minimal fluid within the subacromial subdeltoid bursa may represent bursitis. 6. Probable small superior labral tear appears chronic/degenerative. Dictated by: Lakhwinder Weaver M.D. on 10/04/2019 at 15:16 Approved by: Lakhwinder Weaver M.D. on 10/04/2019 at 15:22
--- NOTE | 2019-10-04 | DI.RAD.S_ITS ---
PROCEDURE: XR HUMERUS RT 2V INDICATIONS: PAIN OF BILATERAL SHOULDER/RIGH HAND PAIN TECHNIQUE: 2 views of the humerus were acquired. COMPARISON: None. FINDINGS: Bones: No fractures or dislocations. No suspicious bony lesions. Soft tissues: No suspicious soft tissue calcifications. IMPRESSION: Mild osteoarthritis of the a.c. joint incidentally noted, no trauma over the humerus is found. Dictated by: Mark Feng M.D. on 10/04/2019 at 14:37 Approved by: Mark Feng M.D. on 10/04/2019 at 14:37
--- NOTE | 2019-10-04 | DI.MRI.S_ITS ---
PROCEDURE: MR SHOULDER RT WO CON INDICATIONS: PAIN OF BILATERAL SHOULDER TECHNIQUE: Noncontrast oblique coronal T2 fast spin echo with fat saturation, oblique sagittal T1 spin echo and T2 fast spin echo with fat saturation, axial T1 spin echo and T2 fast spin echo with fat saturation through the shoulder. COMPARISON: [facility], MR, MR SHOULDER RT WO CON, 01/18/2018, 13:08. FINDINGS: Image quality: Diagnostic. Rotator cuff: No definite full-thickness tear of the rotator cuff is identified. However, there is prominent thickening and diffuse increased signal involving the supraspinatus tendon with areas of low to moderate grade articular surface partial thickness tearing at the level of the footprint. A similar appearance, to a lesser degree, is evident involving the infraspinatus tendon with propagation of partial thickness tearing along the myotendinous junction. There is increased signal identified with associated thickening involving the subscapularis tendon without definite partial thickness tearing. These findings have slightly progressed in the interim the teres minor tendon is intact. There is mild teres minor muscle atrophy, which is similar to the previous exam. No additional areas of rotator cuff muscle atrophy are present. Bones and bursae: No acute fracture or suspicious osseous lesion is identified. There mild degenerative changes of the glenohumeral joint with an associated small joint effusion. Moderate degenerative changes of the acromioclavicular joint are present. A small amount of fluid is contained within the subacromial subdeltoid bursa. Capsule and soft tissues: Evaluation of the labrum and the glenohumeral ligaments is suboptimal without intra-articular contrast. However, there is tearing identified along the posterosuperior margin of the labrum that extends from at least the 12 o'clock position to the 2 o'clock position. A separate area of anteroinferior labral tearing is also identified extending from approximately the 9 o'clock position to the 6 o'clock position. Heterogeneous areas of increased signal within the posterior inferior aspect of the labrum are also present. These findings have progressed in the interim. No large paralabral cysts are identified. The long head of the biceps tendon is normally positioned within the bicipital groove. However, there is marked thickening and increased signal evident involving the intra-articular portion of this tendon. No acute injuries are suspected involving the glenohumeral ligaments. IMPRESSION: 1. Low to moderate grade partial-thickness tearing and tendinopathy of the supraspinatus and infraspinatus tendons. There is an interstitial/delaminating partial-thickness component of the infraspinatus myotendinous junction. These findings have progressed. 2. Mild subscapularis tendinopathy. 3. Complex/patchy tearing of the labrum, as described with possible involvement of the biceps anchor, which has progressed/developed in the interim. 4. Moderate tendinopathy involving the intra-articular portion of the biceps tendon. 5. [id number] degenerative changes of the right shoulder joints. 6. Minimal fluid within the subacromial subdeltoid bursa may represent bursitis. Please correlate clinically. Dictated by: Lakhwinder Weaver M.D. on 10/04/2019 at 15:22 Approved by: Lakhwinder Weaver M.D. on 10/04/2019 at 15:27
== END ==
PROVIDERS: Family Provider Family Medicine; PCP Family Medicine; Referring Provider Orthopaedic Surgery; Visit Provider Orthopaedic Surgery
DX: M25.512 Pain in left shoulder (principal); M25.511 Pain in right shoulder; M79.641 Pain in right hand; M79.601 Pain in right arm; M79.602 Pain in left arm; M75.112 Incomplete rotator cuff tear or rupture of left shoulder, not specified as traumatic; M75.111 Incomplete rotator cuff tear or rupture of right shoulder, not specified as traumatic; M19.011 Primary osteoarthritis, right shoulder; S43.431A Superior glenoid labrum lesion of right shoulder, initial encounter; S43.491A Other sprain of right shoulder joint, initial encounter; M19.041 Primary osteoarthritis, right hand
CPT/HCPCS: 73060; 73110; 73130; 73221

== ENCOUNTER → 2019-10-11 09:18 | Outpatient (CLI) | payer OTHER, SELFPAY ==
--- NOTE | 2019-10-11 | DI.CT.S_ITS ---
PROCEDURE: CT THORACIC SPINE WO CON INDICATIONS: SPINAL STENOSIS TECHNIQUE: Noncontrast 3 mm thick sections acquired through the region of interest in the thoracic spine. Sagittal and coronal reformats were then constructed. For radiation dose reduction, the following was used: automated exposure control. COMPARISON: None. FINDINGS: Image quality: Excellent. Bones: Diffuse osteopenia noted. Multilevel degenerative endplate sclerosis and spurring. Diffuse disc space narrowing. Scattered Schmorl's nodes also noted. Diffuse facet arthropathy. No fracture identified. No bony canal stenosis identified. Mild bony foraminal narrowing at the left T9-T10 and T10-T11 neuroforamen. Mild right T10-T11, and T11-T12 bony foraminal narrowing. Soft tissues: No paravertebral masses or hematomas. Visualized posteromedial lungs appear clear. IMPRESSION: Mild lower thoracic bony foraminal narrowing as above. No bony canal stenosis Diffuse osteopenia and multilevel spondylitic changes. Scattered Schmorl's nodes. Dictated by: Cirilo Lopez M.D. on 10/11/2019 at 12:34 Approved by: Cirilo Lopez M.D. on 10/11/2019 at 12:42
--- NOTE | 2019-10-11 | DI.CT.S_ITS ---
PROCEDURE: CT CERVICAL SPINE WO CON INDICATIONS: SPINAL STENOSIS TECHNIQUE: Noncontrast 3 mm thick sections acquired from the skull base to the T4 level. Sagittal and coronal reformats were then constructed. For radiation dose reduction, the following was used: automated exposure control, adjustment of mA and/or kV according to patient size. COMPARISON: None. FINDINGS: Image quality: Excellent. Bones: No fractures or dislocations. ACDF at C6-C7. Interbody cage graft also noted at C6-C7. No definite bridging ossification. There is expected postoperative alignment. There is some lucency at the metal bone interface although probably less than 2 mm at this time. Additional fusion of the C3-C6 vertebral bodies with interbody cage grafts, with bridging ossification. Loss of the normal cervical lordosis. Multilevel degenerative endplate sclerosis and spurring. Diffuse facet arthropathy. No definite bony canal stenosis. Mild left C4-C5 bony foraminal narrowing. Moderate left C6-C7 bony foraminal stenosis. Moderate right C6-C7 bony foraminal stenosis. Upper thoracic spondylitic changes. There is diffuse osteopenia Soft tissues: Prevertebral soft tissues are normal in thickness. No paravertebral hematomas. No apical pneumothoraces. IMPRESSION: Postsurgical and degenerative changes as detailed above Dictated by: Cirilo Lopez M.D. on 10/11/2019 at 11:17 Approved by: Cirilo Lopez M.D. on 10/11/2019 at 11:32
== END ==
PROVIDERS: Family Provider Family Medicine; PCP Family Medicine; Referring Provider Family Medicine; Visit Provider Family Medicine
DX: M48.02 Spinal stenosis, cervical region (principal); R29.898 Other symptoms and signs involving the musculoskeletal system; M47.812 Spondylosis without myelopathy or radiculopathy, cervical region; M48.04 Spinal stenosis, thoracic region; M47.814 Spondylosis without myelopathy or radiculopathy, thoracic region; M85.88 Other specified disorders of bone density and structure, other site; M51.44 Schmorl's nodes, thoracic region; Z98.1 Arthrodesis status
CPT/HCPCS: 72125; 72128

== ENCOUNTER 2019-12-16 21:13 | Emergency (ER) | payer OTHER, SELFPAY ==
[2019-12-16 21:23] VITALS: BP 156/86; PULSE 72; RESP 16; TEMP 36.6; O2SAT 97; BMI 24.3
[2019-12-16 21:46] VITALS: BP 141/86; PULSE 83; RESP 20; O2SAT 96
[2019-12-16 21:52] LABS: Add Manual Diff / Slide Review NO; Basophils Absolute Auto 0 /uL (0-100); Basophils Percent Auto 0.3 % (0-2); Eosinophils Absolute Auto 100 /uL (0-450); Eosinophils Percent Auto 2.6 % (2-4); Hematocrit 43.3 % (41-53); Hemoglobin 14.8 g/dL (13.5-17.5); Lymphocytes Absolute Auto 1300 /uL (1100-4500); Lymphocytes Percent Auto 23.2 % (25-40); Mean Corpuscular HGB Conc 34.2 % (30-36); Mean Corpuscular Hemoglobin 30.4 PG (26-34); Mean Corpuscular Volume 88.9 fL (80-100); Monocytes Absolute Auto 400 /uL (0-900); Monocytes Percent Auto 7.4 % (3-14); Neutrophils Absolute Auto 3700 /uL (1500-7000); Neutrophils Percent Auto 66.5 % (50-75); Platelet Count 161 X10^3/uL (150-400); Red Blood Cell Count 4.87 X10^6/uL (4.5-5.9); Red Cell Distribution Width 13.5 % (11.6-14.8); White Blood Cell Count 5.5 X10^3/uL (4.5-11.0)
[2019-12-16 21:52] LABS: Bacteria Urine None Seen; WBC Urine None Seen (0-5/HPF)
[2019-12-16 21:59] LABS: Appearance Urine UA CLEAR; Bilirubin Urine UA NEGATIVE (NEGATIVE); Color Urine UA YELLOW; Glucose Urine UA NEGATIVE (Negative); Ketones Urine UA NEGATIVE (NEGATIVE); Leukocyte Esterase Urine UA NEGATIVE (NEGATIVE); Nitrite Urine UA NEGATIVE (Negative); Occult Blood Urine UA 1+ (Negative); Protein Urine UA NEGATIVE (Negative); Urobilinogen Urine UA 0.2 E.U./dL (0.2)
[2019-12-16 22:01] LABS: BUN Creatinine Ratio 33.3 (6-22); Blood Urea Nitrogen 27 mg/dL (9-20); Calcium 9.7 mg/dL (8.4-10.2); Carbon Dioxide 26 mmol/L (22-32); Chloride 105 mmol/L (98-107); Estimated Glomerular Filt Rate > 60.0 mL/min (>60); Glucose 135 mg/dL (80-110); HEMOLYSIS 26 (0-50); Potassium 3.8 mmol/L (3.4-5.1); Sodium 138 mmol/L (137-145)
[2019-12-16 22:13] LABS: Culture Indicated Urine Cult Not Indicated; RBC Urine 1-5/HPF (0-5/HPF)
--- NOTE | 2019-12-16 22:51 | ED.GENADULT ---
HPI - General Adult General Chief complaint: Urogenital-Male Stated complaint: thinks passing a kidney stone Time Seen by Provider: 12/16/19 21:19 Source: patient Mode of arrival: Ambulatory Limitations: no limitations History of Present Illness HPI narrative: 59-year-old male with the prior history of kidney stones. States that he is always passed all of his stones here for evaluation of what he thinks is a another kidney stone. He states that approximately 24-36 hours ago started having right-sided discomfort, urinary urgency. Had some tramadol at home which she took which seemed to help the symptoms somewhat. Had some chills last evening but no recorded fevers. [place] Received a IM injection of Toradol and is instructed that he should come to the emergency department for evaluation. Upon his arrival here he states that his symptoms are fairly much controlled. Has urinated since he has been here with minimal discomfort. No vomiting. No fevers since the chills last evening. Does see a urologist. Related Data Home Medications Medication Instructions Recorded Confirmed baclofen 10 mg PO TID 06/29/19 meloxicam 15 mg PO DAILY 06/29/19 06/29/19 oxycodone 5 - 10 mg PO Q4-6H PRN 06/29/19 pregabalin 75 mg PO TID 06/29/19 Previous Rx's Medication Instructions Recorded gabapentin 100 mg PO QDAY #90 cap 10/19/16 gabapentin [Neurontin] 400 mg PO TID #270 cap 11/06/16 clonazepam 1 mg PO BIDP PRN #60 tab 12/14/16 ondansetron HCl 4 mg PO Q6H #10 tab 06/29/19 oxycodone 5 mg PO BID PRN #10 tab 06/29/19 tamsulosin 0.4 mg PO DAILY #20 cap 06/29/19 Allergies Allergy/AdvReac Type Severity Reaction Status Date / Time zoledronic acid Allergy Severe Anaphylaxis Verified 08/21/19 09:11 [From Reclast] Review of Systems Constitutional Constitutional: Reports chills and Denies fever(s) Cardiovascular Cardiovascular: Denies chest pain and Denies dyspnea Respiratory Respiratory: Denies dyspnea Gastrointestinal Gastrointestinal: Reports abdominal pain, Reports nausea and Denies vomiting Genitourinary Genitourinary: Reports hematuria, Reports dysuria, Reports urinary hesitancy and Reports urinary urgency Genitourinary: Reports hematuria, Reports dysuria, Reports urinary hesitancy and Reports urinary urgency Musculoskeletal Musculoskeletal: Denies arthralgias and Denies myalgias Integumentary/Breasts Skin/Breast: Denies rash Neurologic Neurologic: Denies behavioral changes Psychiatric Psychiatric: Denies behavioral changes Hematologic/Lymphatic Hematologic/Lymphatic: Denies easy bleeding and Denies easy bruising Patient History Medical History Nephrolithiasis (Acute) Surgical History History of carpal tunnel repair History of hip replacement History of spinal fusion Status post hernia repair Status post knee surgery Status post laminectomy Social History Smoking Status: Former smoker Smoking Status: Former smoker alcohol intake frequency: 0-2 drinks per day Substance Use Type: does not use Exam Initial Vital Signs Initial Vital Signs: Vital Signs Temperature 97.9 F 12/16/19 21:23 Pulse Rate 72 12/16/19 21:23 Respiratory Rate 16 12/16/19 21:23 Blood Pressure 156/86 H 12/16/19 21:23 Pulse Oximetry 97 12/16/19 21:23 Const General: cooperative, healthy appearing, comfortable, well developed and well groomed Limitations: mental status not altered HENPR Head: normal to inspection and normocephalic Resp Effort & Inspection: normal respiratory effort Cardio Rate: regular rate GI Inspection: non-distended Skin Lesions: no lesions Rashes: no rashes Neuro General: patient alert and patient awake Cognition: normal cognition Speech: speech normal Extrem General: normal to inspection and capillary refill normal Psych Appearance: grossly normal and well kempt Course Orders Ordered: ED Orders 12/16/19 21:30 Urinalysis and Microscopic Stat 12/16/19 21:40 Basic Metabolic Panel Stat Complete Blood Count AUTO DIFF Stat Vital Signs Vital signs: Vital Signs - 8 hr 12/16/19 21:23 12/16/19 21:46 12/16/19 23:24 Temperature 97.9 F Pulse Rate 72 83 71 Respiratory Rate 16 20 20 Blood Pressure 156/86 H 141/86 H 134/70 Pulse Oximetry 97 96 97 Medical Decision Making Medical Records Medical records reviewed: Yes I reviewed the patient's medical records. Lab Data Lab results reviewed: Yes I reviewed the patient's lab results. Result diagrams: 12/16/19 21:40 12/16/19 21:40 Labs: Lab Results 12/16/19 12/16/19 12/16/19 Range/Units 21:30 21:40 21:40 WBC 5.5 (4.5-11.0) X10^3/uL RBC 4.87 (4.5-5.9) X10^6/uL Hgb 14.8 (13.5-17.5) g/dL Hct 43.3 (41-53) % MCV 88.9 (80-100) fL MCH 30.4 (26-34) PG MCHC 34.2 (30-36) % RDW 13.5 (11.6-14.8) % Plt Count 161 (150-400) X10^3/uL Neut % (Auto) 66.5 (50-75) % Lymph % (Auto) 23.2 L (25-40) % [place] % (Auto) 7.4 (3-14) % Eos % (Auto) 2.6 (2-4) % Baso % (Auto) 0.3 (0-2) % Neut # (Auto) 3700 (4010-6709) /uL Lymph # (Auto) 1300 (6674-8879) /uL [place] # (Auto) 400 (0-900) /uL Eos # (Auto) 100 (0-450) /uL Baso # (Auto) 0 (0-100) /uL Sodium 138 (137-145) mmol/L Potassium 3.8 (3.4-5.1) mmol/L Chloride 105 (98-107) mmol/L Carbon Dioxide 26 (22-32) mmol/L BUN 27 H (9-20) mg/dL Creatinine 0.81 (0.66-1.25) mg/dL Estimated GFR > 60.0 (>60) mL/min BUN/Creatinine Ratio 33.3 H (6-22) Glucose 135 H (80-110) mg/dL Calcium 9.7 (8.4-10.2) mg/dL Urine Color Yellow Urine Appearance Clear Urine pH 6.0 (4.5-8.0) Ur Specific [place] 1.020 (1.000-1.035) Urine Protein Negative (Negative) Urine Glucose (UA) Negative (Negative) g/dL Urine Ketones Negative (NEGATIVE) Urine Occult Blood 1+ H (Negative) Urine Nitrate Negative (Negative) Urine Bilirubin Negative (NEGATIVE) Urine Urobilinogen 0.2 (0.2) E.U./dL Ur Leukocyte Esterase Negative (NEGATIVE) Urine RBC 1-5/hpf (0-5/HPF) Urine WBC None seen (0-5/HPF) Urine Bacteria None seen (None) Ur Culture Indicated? Cult not indicated MDM Narrative Medical decision making narrative: Patient has a history of stones. He states this feels like kidney stone. He states that after his shot of Toradol he feels much better. Urinalysis today has hematuria but no signs of infection. His creatinine is unremarkable. I had a long discussion with him and his regarding the symptoms. We will hold on a CT scan for now. He has pain medicine and nausea medicine at home. He has a urologist. He is already on Flomax. I feel that we can hold on further workup for now. He was given return precautions and follow-up instructions. He expressed understanding and agreement. Discharge Plan Departure Patient Disposition: Home Clinical Impression: Renal colic on right side Discharge Date/Time: 12/16/19 23:06 Instructions: DI for Kidney Stones Activity Restrictions/Additional Instructions: Recommend that you take all of your medications as directed. Contact your urologist on Wednesday for a follow-up. Return to the emergency department for any fevers, inability to urinate, pain is not controlled with her medications for any other new or worsening symptoms Prescriptions: No Action gabapentin 100 MG capsule 100 mg PO QDAY Qty: 90 RF: 3 gabapentin [Neurontin] 400 MG capsule 400 mg PO TID Qty: 270 RF: 1 clonazepam 1 MG tablet 1 mg PO BIDP PRNQty: 60 RF: 5 baclofen 10 mg tablet 10 mg PO TID RF: 0 pregabalin 75 mg Capsule 75 mg PO TID RF: 0 oxycodone 10 mg tablet 5 - 10 mg PO Q4-6H PRN (Reason: pain) RF: 0 meloxicam 15 MG tablet 15 mg PO DAILY RF: 0 ondansetron HCl 4 mg tablet 4 mg PO Q6H Qty: 10 RF: 0 oxycodone 5 mg tablet 5 mg PO BID PRN (Reason: pain) Qty: 10 RF: 0 tamsulosin 0.4 mg capsule 0.4 mg PO DAILY Qty: 20 RF: 0 Referrals: Silvana Rodrigues MD [Primary Care Provider] -
[2019-12-16 23:24] VITALS: BP 134/70; PULSE 71; RESP 20; O2SAT 97
== END 2019-12-16 23:06 | disposition home or self-care (01) ==
PROVIDERS: Emergency Provider Emergency Medicine; Family Provider Family Medicine; PCP Family Medicine
DX: N23 Unspecified renal colic (principal); Z87.442 Personal history of urinary calculi; R11.0 Nausea; R30.0 Dysuria
CPT/HCPCS: 36415; 80048; 81001; 85025; 99283; 99284

== ENCOUNTER 2020-01-17 15:02 | Emergency (ER) | payer OTHER, SELFPAY ==
[2020-01-17 15:03] VITALS: BP 159/78; PULSE 62; RESP 16; TEMP 36.2; O2SAT 98; BMI 24.7
--- NOTE | 2020-01-17 15:15 | DI.CT.S_ITS ---
PROCEDURE: CT HEAD/BRAIN WO CON INDICATIONS: neuro/ weakness of wrist. TECHNIQUE: Noncontrast 4.5 mm thick angled axial sections acquired from the foramen magnum to the vertex, with coronal and sagittal reformats. For radiation dose reduction, the following was used: automated exposure control, adjustment of mA and/or kV according to patient size. COMPARISON: None. FINDINGS: Image quality: Excellent. CSF spaces: Basal cisterns are patent. No extra-axial fluid collections. Ventricles are normal in size and shape. Brain: No midline shift. No intracranial masses or hemorrhage. Martin-white matter interface is normal. Skull and face: Calvarium and visualized facial bones are intact, without suspicious lesions. Sinuses: Visualized sinuses and mastoids are clear. IMPRESSION: Negative head CT. No evidence of acute stroke, hemorrhage, or mass. Dictated by: Marco Grant M.D. on 01/17/2020 at 15:29 Approved by: Marco Grant M.D. on 01/17/2020 at 15:29
--- NOTE | 2020-01-17 15:57 | ED_ITS ---
HPI - Neuro Symptoms/Deficit General Chief Complaint: Neuro Symptoms/Deficit Stated Complaint: lost/reduced strength and function of right arm Time Seen by Provider: 01/17/20 15:30 Source: patient and family History of Present Illness HPI Narrative: Patient complains right upper extremity weakness sudden onset 10:30 p.m. last night. Nearly 18 hours ago. Patient has history of cervical fusion surgery June 2019 [facility]. Multiple levels. Patient then had right shoulder surgery in the last couple months as well. Has been doing well postop and with physical therapy of the shoulder. Last night he was using thera-cane and tennis ball therapy procedure on his right upper arm when he had sudden onset of wrist drop and weakness of the hand and ataxic with the arm. 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 Denies denies any chest pain palpitations headache slurred speech facial droop or any other complaints. Denies any neck pain. 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 which is not new On Anticoagulants: No Related Data Home Medications Medication Instructions Recorded Confirmed baclofen 10 mg PO TID 06/29/19 meloxicam 15 mg PO DAILY 06/29/19 06/29/19 oxycodone 5 - 10 mg PO Q4-6H PRN 06/29/19 pregabalin 75 mg PO TID 06/29/19 Previous Rx's Medication Instructions Recorded gabapentin 100 mg PO QDAY #90 cap 10/19/16 gabapentin [Neurontin] 400 mg PO TID #270 cap 11/06/16 clonazepam 1 mg PO BIDP PRN #60 tab 12/14/16 ondansetron HCl 4 mg PO Q6H #10 tab 06/29/19 oxycodone 5 mg PO BID PRN #10 tab 06/29/19 tamsulosin 0.4 mg PO DAILY #20 cap 06/29/19 Allergies Allergy/AdvReac Type Severity Reaction Status Date / Time zoledronic acid Allergy Severe Anaphylaxis Verified 08/21/19 09:11 [From Reclast] Review of Systems Review of Systems Narrative: GENERAL: Denies chills, fatigue, malaise, fever, sweats. HEENT: Denies sinus pain, ear pain, sore throat, difficulty swallowing, dizziness. RESPIRATORY: Denies dyspnea, cough, wheezing, hemoptysis, sputum. CARDIOVASCULAR: Denies chest pain, palpitations, orthopnea, edema, GASTROINTESTINAL: Denies nausea, vomiting, abdominal pain, diarrhea, constipation, melena. : Denies dysuria, frequency, incontinence, hematuria, urinary retention. MUSCULOSKELETAL: denies weakness, joint pain, or bony pain SKIN: Denies rash, skin lesions, or other NEUROLOGIC: Denies headache changes speech confusion, has complaints of weakness numbness and incoordination. PSYCHIATRIC: No concerning psychosocial issues. ROS Unobtainable: All systems reviewed & are unremarkable except as noted in HPI and below Patient History Medical History Nephrolithiasis (Acute) Surgical History History of carpal tunnel repair History of hip replacement History of spinal fusion Status post hernia repair Status post knee surgery Status post laminectomy Social History Smoking Status: Former smoker Smoking Status: Former smoker alcohol intake frequency: 0-2 drinks per day Substance Use Type: does not use Exam Narrative Exam Narrative: GENERAL: patient appears stated age. Well-nourished, well- developed patient, in no distress, not toxic HEAD: Atraumatic. Normocephalic. EYES: Pupils equal round and reactive. Extraocular motions intact. No scleral icterus. No injection or drainage. ENT: Nose without bleeding, purulent drainage. Throat without erythema, tonsillar hypertrophy or exudate. Airway patent. NECK: Trachea midline. Non tender CARDIOVASCULAR: Regular rate and rhythm without murmurs, gallops, or rubs. RESPIRATORY: Clear to auscultation. Breath sounds equal bilaterally. No wheezes, rales, or rhonchi. GASTROINTESTINAL: Abdomen soft, non-tender, nondistended. EXTREMITIES: No edema or joint tenderness. BACK: Nontender without deformity or crepitance. No flank tenderness. NEURO: AOx4. Clear speech no facial droop steady suffocate no footdrop. Strong left payroll supervisor. Strong bilateral ankle flexion extension. Negative pronator drift. Steady Romberg. Examination right upper extremity decreased since 8 light touch to fingers and thumb which patient states is slightly worse with new median nerve distribution of the hand, thumb index finger and middle finger. Unable to fully make a fist/payroll supervisor. Able to do near active extension of the wrist however not able to fully flex at the wrist. Able to fully flex extend the elbow with supination pronation as well. SKIN: No rash or erythema of visible areas PSYCH: Not anxious, is cooperative Initial Vital Signs Initial Vital Signs: Vital Signs Temperature 97.2 F L 01/17/20 15:03 Pulse Rate 62 01/17/20 15:03 Respiratory Rate 16 01/17/20 15:03 Blood Pressure 159/78 H 01/17/20 15:03 Pulse Oximetry 98 01/17/20 15:03 Course Orders Ordered: ED Orders 01/17/20 15:15 CT head/brain wo con Stat 01/17/20 17:51 XR cervical spine 2V or 3V Stat Consultations Consultation #1: Spoke with [facility] stroke team Dr. Painting... Presen tation of sudden-onset wrist drop and right arm discomfort and weakness does not clinically correlate with a stroke.. No further imaging indicated. Patient likely needs consult with his neurosurgeon regarding the wrist drop and recent surgery. Nothing to suggest large vessel occlusion or impairment in the brain Time: 16:54 Consultation #2: i s/w dr tabares, neurosurgeon on-call for patient's neurosurgeon dr rahman.. Symptoms do not correlate with cervical spine problem. Patient has no neck pain. Likely peripheral problem likely related to therapy patient was November yesterday and due to recent right shoulder surgery. Time: 17:32 Consultation #3: I spoke with Dr. ackerman, Ortho/Hand surgeon with Dr. Lm Donis group that patient sees, at this time no intervention or imaging indicated, he will see patient himself in the office this week, patient to call office in the morning Time: 18:02 Vital Signs Vital signs: Vital Signs - 8 hr 01/17/20 15:03 Temperature 97.2 F L Pulse Rate 62 Respiratory Rate 16 Blood Pressure 159/78 H Pulse Oximetry 98 MDM - Neuro Symptoms/Deficit Differential Diagnosis Differential diagnosis: Likely peripheral neuropathy, cerebrovascular accident and other (Cervical radiculopathy) Imaging Data CT scan - head: Radiologist's Impression: [address] [address] [address] Scan Report Signed Patient: Kristian Dickerson LMR#: [id number] : [id number]:[id number] Age/Sex: 59 / MDate of Service: 01/17/20 Loc: ED Accession Number: [id number] Procedure: CT head/brain wo con Ordering Provider: David Hopkins MD PROCEDURE: CT HEAD/BRAIN WO CON INDICATIONS: neuro/ weakness of wrist. TECHNIQUE: Noncontrast 4.5 mm thick angled axial sections acquired from the foramen magnum to the vertex, with coronal and sagittal reformats. For radiation dose reduction, the following was used: automated exposure control, adjustment of mA and/or kV according to patient size. COMPARISON: None. FINDINGS: Image quality: Excellent. CSF spaces: Basal cisterns are patent. No extra-axial fluid collections. Ventricles are normal in size and shape. Brain: No midline shift. No intracranial masses or hemorrhage. Martin-white matter interface is normal. Skull and face: Calvarium and visualized facial bones are intact, without suspicious lesions. Sinuses: Visualized sinuses and mastoids are clear. IMPRESSION: Negative head CT. No evidence of acute stroke, hemorrhage, or mass. Dictated by: Marco Grnat M.D. on 01/17/2020 at 15:29 Approved by: Marco Grant M.D. on 01/17/2020 at 15:29 X-ray cervical spine: Radiologist's Impression: [place] [address] XRay Report Signed Patient: Kristian Dickerson LMR#: [id number] : [id number]:[id number] Age/Sex: 59 / MDate of Service: 01/17/20 Loc: ED Accession Number: [id number] Procedure: XR cervical spine 2V or 3V Ordering Provider: David Hopkins MD PROCEDURE: XR CERVICAL SPINE 2V OR 3V INDICATIONS: Neck pain TECHNIQUE: 4 view(s) of the cervical spine were acquired. COMPARISON: [facility], CT, CT HEAD/BRAIN WO CON, 01/17/2020, 15:18. [facility], CT, CT CERVICAL SPINE WO CON, 10/11/2019, 9:36. FINDINGS: Bones: No fractures or dislocations to the T1 level. The lateral masses of C1 appear intact on the odontoid view. No suspicious bony lesions. Postoperative changes are seen, with disc spacers at C3-C4 and C4-C5. Anteriorly placed fixation hardware is seen at C6-C7. No findings of hardware failure or hardware loosening are seen. There is mild reversal of the normal cervical lordosis. Soft tissue ossification is seen posteriorly, which may be congenital or related to a remote injury. Soft tissues: No prevertebral soft tissue swelling. Right soft tissue clips are seen. The visualized lung apices are unremarkable. IMPRESSION: Extensive postoperative change, without an acute bony abnormality seen by plain film. Dictated by: Ha Noel M.D. on 01/17/2020 at 17:17 Approved by: Ha Noel M.D. on 01/17/2020 at 17:19 [facility] Narrative Medical decision making narrative: Patient and agree with treatment plan. They are comfortable with follow-up. 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 Call your neurosurgery office for office recheck within a week. Informed them that x-ray of your cervical spine was completed here. Call your orthopedic office tomorrow morning and inform the office that Dr. Ackerman desires to see you this week. Prescriptions: No Action gabapentin 100 MG capsule 100 mg PO QDAY Qty: 90 RF: 3 gabapentin [Neurontin] 400 MG capsule 400 mg PO TID Qty: 270 RF: 1 clonazepam 1 MG tablet 1 mg PO BIDP PRNQty: 60 RF: 5 baclofen 10 mg tablet 10 mg PO TID RF: 0 pregabalin 75 mg Capsule 75 mg PO TID RF: 0 oxycodone 10 mg tablet 5 - 10 mg PO Q4-6H PRN (Reason: pain) RF: 0 meloxicam 15 MG tablet 15 mg PO DAILY RF: 0 ondansetron HCl 4 mg tablet 4 mg PO Q6H Qty: 10 RF: 0 oxycodone 5 mg tablet 5 mg PO BID PRN (Reason: pain) Qty: 10 RF: 0 tamsulosin 0.4 mg capsule 0.4 mg PO DAILY Qty: 20 RF: 0 Referrals: Silvana Rodrigues MD [Primary Care Provider] -
--- NOTE | 2020-01-17 15:59 | PC.NURSE ---
reports verbally and with recorded video right wrist/hand drop. Patient needed to move his head under his hand and twist and turn head to put glasses on in his video from yesterday. Today he has controlled movment in right hand with some drop and weakness.
--- NOTE | 2020-01-17 16:46 | PC.NURSE ---
patient up ambulating self to bathroom.. denies needs. Family at bedside.
--- NOTE | 2020-01-17 17:51 | DI.RAD.S_ITS ---
PROCEDURE: XR CERVICAL SPINE 2V OR 3V INDICATIONS: Neck pain TECHNIQUE: 4 view(s) of the cervical spine were acquired. COMPARISON: [facility], CT, CT HEAD/BRAIN WO [facility], 01/17/2020, 15:18. [facility], CT, CT CERVICAL SPINE WO [facility], 10/11/2019, 9:36. FINDINGS: Bones: No fractures or dislocations to the T1 level. The lateral masses of C1 appear intact on the odontoid view. No suspicious bony lesions. Postoperative changes are seen, with disc spacers at C3-C4 and C4-C5. Anteriorly placed fixation hardware is seen at C6-C7. No findings of hardware failure or hardware loosening are seen. There is mild reversal of the normal cervical lordosis. Soft tissue ossification is seen posteriorly, which may be congenital or related to a remote injury. Soft tissues: No prevertebral soft tissue swelling. Right soft tissue clips are seen. The visualized lung apices are unremarkable. IMPRESSION: Extensive postoperative change, without an acute bony abnormality seen by plain film. Dictated by: Ha Noel M.D. on 01/17/2020 at 17:17 Approved by: Ha Noel M.D. on 01/17/2020 at 17:19
--- NOTE | 2020-01-17 17:52 | PC.NURSE ---
patient ambulated to bathroom unassisted.
[2020-01-17 18:23] VITALS: BP 157/96; PULSE 62; O2SAT 98
== END 2020-01-17 18:24 | disposition home or self-care (01) ==
PROVIDERS: Emergency Provider Emergency Medicine; Family Provider Family Medicine; PCP Family Medicine
DX: G61.82 Multifocal motor neuropathy (principal); M54.2 Cervicalgia; R53.1 Weakness
CPT/HCPCS: 70450; 72040; 99284

== ENCOUNTER → 2020-01-26 12:29 | Outpatient (CLI) | payer OTHER, SELFPAY ==
--- NOTE | 2020-01-26 12:31 | DI.MRI.S_ITS ---
PROCEDURE: MR CERVICAL SPINE WO CON INDICATIONS: Spinal stenosis, cervical region TECHNIQUE: Noncontrast sagittal T1 spin echo and T2 fast spin echo, sagittal STIR, foraminal oblique sagittal T2 fast spin echo, and axial gradient echo or T2 fast spin echo through the cervical spine. COMPARISON: Located [facility], MR, C-SPINE WITHOUT CONTRAST, 01/22/2015, 16:26. FINDINGS: Image quality: Excellent. Alignment and Curvature: There is loss of normal cervical lordosis. Mild calcis at C4-C6. Bone Marrow: Marrow demonstrates normal overall signal. Anterior fusion hardware at C3-C7 is present, as before. Spinal Cord: Visualized spinal cord has normal size and signal. No cerebellar tonsillar herniation. Paraspinous Soft Tissues: No paravertebral masses. Prevertebral soft tissues are normal in thickness. C2-C3: Moderate disc desiccation. Mild diffuse disc bulge. Mild facet and uncovertebral hypertrophy bilaterally. Mild canal stenosis. Mild bilateral foraminal stenosis. No change. C3-C4: Status post fusion. Mild bilateral facet hypertrophy. No significant canal stenosis. Mild bilateral foraminal stenosis. No change. C4-C5: Status post fusion. Mild bilateral facet hypertrophy. No significant canal stenosis. Mild bilateral foraminal stenosis. No change. C5-C6: Status post fusion. Mild bilateral facet hypertrophy. No significant canal stenosis. Mild bilateral foraminal stenosis. No change. C6-C7: Status post fusion. Moderate facet and uncovertebral hypertrophy bilaterally. No significant canal stenosis. Moderate bilateral foraminal stenosis. No change. C7-T1: Mild disc desiccation. Mild facet and uncovertebral hypertrophy bilaterally. No significant canal stenosis. Mild bilateral foraminal stenosis. No change. IMPRESSION: 1. Postsurgical sequelae. 2. Multilevel degenerative disc and facet disease, as well as uncovertebral hypertrophy. 3. Mild multilevel canal stenosis. 3. Multilevel foraminal stenoses, worst at C5-6 C7 where there are moderate foraminal stenoses. Dictated by: Yun Dupree M.D. on 01/26/2020 at 15:04 Approved by: Yun Dupree M.D. on 01/26/2020 at 15:10
== END ==
PROVIDERS: Family Provider Family Medicine; PCP Family Medicine; Referring Provider Student in an Organized Health Care Education/Training Program; Visit Provider Student in an Organized Health Care Education/Training Program
DX: M48.02 Spinal stenosis, cervical region (principal); M50.31 Other cervical disc degeneration, high cervical region; Z98.1 Arthrodesis status
CPT/HCPCS: 72141

== ENCOUNTER → 2021-04-21 10:37 | Outpatient (CLI) | payer OTHER, SELFPAY ==
[2021-04-21 20:20] LABS: COVID19 - ORCAS (NP or Nasal) Negative (Negative)
== END ==
PROVIDERS: Family Provider Family Medicine; PCP Family Medicine; Referring Provider Physician Assistant; Visit Provider Physician Assistant
DX: Z20.822 Contact with and (suspected) exposure to COVID-19 (principal)
CPT/HCPCS: U0003

== ENCOUNTER → 2021-07-14 08:15 | Outpatient (CLI) | payer OTHER, SELFPAY ==
[2021-07-14 20:44] LABS: COVID19 - ORCAS (NP or Nasal) Negative (Negative)
== END ==
PROVIDERS: Family Provider Family Medicine; PCP Family Medicine; Visit Provider Physician Assistant
DX: Z20.822 Contact with and (suspected) exposure to COVID-19 (principal)
CPT/HCPCS: C9803; U0003

== ENCOUNTER → 2021-09-26 08:34 | Outpatient (CLI) | payer MEDICARE, OTHER, SELFPAY ==
[2021-09-26 21:20] LABS: COVID19 - ORCAS (NP or Nasal) Negative (Negative)
[2021-09-29 08:58] LABS: Influenza A - CEPHEID Flu A POSITIVE (NEGATIVE); Influenza B - CEPHEID Flu B NEGATIVE (NEGATIVE)
== END ==
PROVIDERS: Family Provider Family Medicine; PCP Family Medicine; Visit Provider Family Medicine
DX: J06.9 Acute upper respiratory infection, unspecified (principal); Z20.822 Contact with and (suspected) exposure to COVID-19
CPT/HCPCS: 87502; C9803; U0003

== ENCOUNTER → 2024-10-23 12:47 | Outpatient (CLI) | payer MEDICARE, OTHER, SELFPAY ==
[2024-10-23 13:14] LABS: UR Morphine/Opiate cutoff 300 Negative (Negative); Ur Creatinine Normal (Normal); Ur Specific Gravity Normal (Normal); Urine Amphetamines Negative (Negative); Urine Barbiturates Negative (Negative); Urine Benzodiazepines Negative (Negative); Urine Cocaine Negative (Negative); Urine MDMA Negative (Negative); Urine Methadone Negative (Negative); Urine Methamphetamines Negative (Negative); Urine Oxycodone Positive (Negative); Urine Phencyclidine Negative (Negative); Urine Tetrahydrocannabinol Negative (Negative); Urine Tricyclic Antidepressant Negative (Negative); Urine pH Normal (Normal)
== END ==
PROVIDERS: Family Provider Family Medicine; PCP Family Medicine; Referring Provider Family Medicine; Visit Provider Family Medicine
DX: G25.81 Restless legs syndrome (principal)
CPT/HCPCS: 80305

== ENCOUNTER → 2025-03-09 08:45 | Outpatient (CLI) | payer MEDICARE, SELFPAY ==
[2025-03-09 09:22] LABS: Hematocrit 43.7 % (41-53); Hemoglobin 15.0 g/dL (13.5-17.5); Mean Corpuscular HGB Conc 34.2 % (30-36); Mean Corpuscular Hemoglobin 29.6 PG (26-34); Mean Corpuscular Volume 86.3 fL (80-100); Platelet Count 174 X10^3/uL (150-400)
[2025-03-09 09:43] LABS: Alanine Aminotransferase 33 IU/L (<50); Albumin 4.4 g/dL (3.5-5.0); Albumin Globulin Ratio 2.0 (1.0-2.8); Alkaline Phosphatase 55 U/L (38-126); Blood Urea Nitrogen 16 mg/dL (9-20); Calcium 9.3 mg/dL (8.4-10.2); Carbon Dioxide 24 mmol/L (22-32); Chloride 106 mmol/L (98-107); Estimated Glomerular Filt Rate > 60 mL/min (>60); Globulin 2.2 g/dL (1.7-4.1); Glucose 99 mg/dL (70-99); HEMOLYSIS < 15 (0-50); Potassium 4.1 mmol/L (3.4-5.1); Sodium 140 mmol/L (137-145); Total Protein 6.6 g/dL (6.3-8.2)
[2025-03-09 10:14] LABS: Prostate Specific Antigen 2.51 ng/mL (0.10-4.00)
== END ==
PROVIDERS: Family Provider Family Medicine; PCP Family Medicine; Referring Provider Family Medicine; Visit Provider Family Medicine
DX: Z12.5 Encounter for screening for malignant neoplasm of prostate (principal); Z00.00 Encounter for general adult medical examination without abnormal findings
CPT/HCPCS: 36415; 80053; 84153; 85027